=== PATIENT | male | born 1960 | race Two or more races ===

== ENCOUNTER 2017-08-31 08:09 | Inpatient (IN) | payer BC, MEDICARE ==
[~2017-08-31 08:09] MED LIST: Famotidine 20 MG/2 ML SDV IVPUSH SCH; Ropivacaine 49.25 ML, Ketorolac 30 MG, EPINEPHrine 0.5 MG, cloNIDine 80 MCG in Sodium C... INJECT SCH; Scopolamine 1.5 MG Transdermal Patch TRDERM SCH; Tranexamic Acid 4,000 MG in Sodium Chloride 0.9% 100 ML IV SCH; ceFAZolin 2 GM in Premix Bag 1 BAG IV SCH; oxyCODONE ER 20 MG TAB.ER PO SCH
[2017-08-31] MEDS: Lactated Ringers 1,000 ML IV SCH ×2 (08:47→21:18)
[2017-08-31] MEDS: Ketorolac 30 MG/ML SDV IVPUSH SCH ×4 (08:49→23:45)
[2017-08-31] MEDS: Acetaminophen 1,000 MG in Premix Bag 1 BAG IV SCH ×4 (08:55→21:19)
[2017-08-31] MEDS ORDERED: Midazolam 1 MG/ML 2 ML SDV ONE (09:37)
[2017-08-31] MEDS ORDERED: fentaNYL 100 MCG/2 ML SDV ONE (09:37)
[2017-08-31] MEDS ORDERED: Lidocaine 2% 5 ML SDV ONE (09:37)
[2017-08-31] MEDS ORDERED: Propofol 200 MG/20 ML SDV ONE ×2 (09:37→11:02)
[2017-08-31] MEDS ORDERED: ceFAZolin/Dextrose,Iso-Osmotic 2 GM/50 ML Duplex Bag IV ONE (09:38)
[2017-08-31] MEDS ORDERED: Ketorolac 30 MG/ML SDV ONE (09:38)
[2017-08-31] MEDS ORDERED: Ondansetron 4 MG/2 ML SDV ONE ×2 (09:38→13:35)
--- NOTE | 2017-08-31 09:54 | PCM.PREANE ---
Preanesthetic Assessment - Procedure Proposed Procedure: Right TKR - Anesthesia/Transfusion/Family Hx Anesthesia History: Prior Anesthesia Without Reaction Other Type of Anesthesia Reaction Comment: reports hx: 'some motion sickness' Family History of Anesthesia Reaction: No Intubation History: Unknown - Review of Systems General: No Symptoms Pulmonary: No Symptoms, Other (Light smoker) Cardiovascular: No Symptoms Gastrointestinal: No Symptoms Neurological: Gait Disturbance (arthritis and polyarthralgias) Other: Reports: None - Physical Assessment NPO Status Date: 08/30/17 NPO Status Time: 23:00 O2 Sat by Pulse Oximetry: 99 Respiratory Rate: 16 Vital Signs: Last Vital Signs Temp 97.5 F 08/31/17 08:46 Pulse 68 08/31/17 08:46 Resp 16 08/31/17 08:46 BP 126/82 08/31/17 08:46 Pulse Ox 99 08/31/17 08:46 Height: 5 ft 7.5 in Weight: 210 lb ASA Class: 2 Mental Status: Alert & Oriented x3 Airway Class: Mallampati = 1 Dentition: Reports: Normal Dentition, [place](s) Thyro-Mental Finger Breadths: 3 Mouth Opening Finger Breadths: 3 ROM/Head Extension: Full Lungs: Clear to Auscultation, Normal Respiratory Effort Cardiovascular: Regular Rate, Regular Rhythm, No Murmurs - Allergies Allergies/Adverse Reactions: Allergies Allergy/AdvReac Type Severity Reaction Status Date / Time No Known Allergies Allergy Verified 08/31/17 09:43 - Blood Blood Available: No Product(s) Available: None - Anesthesia Plan Pre-Op Medication Ordered: Other (per surgeon protocol) - Acknowledgements Anesthesia Type Planned: Spinal (with IV sedation) Pt an Appropriate Candidate for the Planned Anesthesia: Yes Alternatives and Risks of Anesthesia Discussed w Pt/Guardian: Yes Pt/Guardian Understands and Agrees with Anesthesia Plan: Yes PreAnesthesia Questionnaire Gastrointestinal History: Reports: None Musculoskeletal History: Reports: Arthritis, Fracture Other Musculoskeletal History: DJD, hx fx rt ankle and rt forearm Endocrine/Metabolic History: Reports: Obesity/BMI 30+ - Past Surgical History Head Surgeries/Procedures: Reports: None GI Surgical History: Reports: Hernia, Inguinal Musculoskeletal Surgical History: Reports: Knee Replacement, Shoulder Surgery Other Musculoskeletal Surgeries/Procedures:: hx left knee arthroplasty, dorinda shoulder surgery surgery and exc of nodule from elbow - SUBSTANCE USE Smoking Status *Q: Light Tobacco Smoker Tobacco Use Within Last Twelve Months: Cigarettes Days Per Week of Alcohol Use: 1 Number of Drinks Per Day: 6 Total Drinks Per Week: 6 Recreational Drug Use History: Yes - HOME MEDS Home Medications: Home Meds Multivitamin [Multi-Vitamin Daily] 1 each PO DAILY 12/16/13 [History] traMADol [Ultram] 1 - 2 tab PO Q6H PRN 08/26/17 [History] - CURRENT (IN HOUSE) MEDS Current Meds: Current Medications Famotidine (Pepcid) 40 mg IVPUSH ONARRIVE [facility] Last Admin: 08/31/17 08:48 Dose: 40 mg Acetaminophen 1,000 mg/ Premix 100 mls @ 400 mls/hr IV ONARRIVE [facility] Last Admin: 08/31/17 08:55 Dose: 400 mls/hr Cefazolin Sodium/Dextrose 2 gm (/ Premix) 50 mls @ 100 mls/hr IV ONCALL [facility] Ropivacaine 49.25 ml/Ketorolac Tromethamine 30 mg/Epinephrine HCl 0.5 mg/ Clonidine HCl 80 mcg/ Sodium Chloride 100 mls @ 50 mls/sec INJECT ASDIRECTED [facility] Lactated Ringer's (Ringers, Lactated) 1,000 mls @ 100 mls/hr IV ASDIRECTED [facility] Last Admin: 08/31/17 08:47 Dose: 100 mls/hr Tranexamic Acid 4,000 mg/ (Sodium Chloride) 140 mls @ 600 mls/hr IV ASDIRECTED [facility] Ketorolac Tromethamine (Toradol) 30 mg IVPUSH ONARRIVE [facility] Last Admin: 08/31/17 08:49 Dose: 30 mg Oxycodone HCl (Oxycontin) 20 mg PO ONARRIVE [facility] Last Admin: 08/31/17 08:47 Dose: 20 mg Scopolamine (Transderm-Scop) 1.5 mg TRDERM ONARRIVE [facility] Last Admin: 08/31/17 08:48 Dose: 1.5 mg Discontinued Medications Cefazolin Sodium/Dextrose (Ancef) Confirm Administered Dose 2 gm IV .STK-MED ONE Stop: 08/31/17 09:39 Fentanyl (Sublimaze) Confirm Administered Dose 100 mcg .ROUTE .STK-MED ONE Stop: 08/31/17 09:38 Ketorolac Tromethamine (Toradol) Confirm Administered Dose 30 mg .ROUTE .STK- MED ONE Stop: 08/31/17 09:39 Lidocaine (Xylocaine-Mpf 2%) Confirm Administered Dose 10 ml .ROUTE .STK-MED ONE Stop: 08/31/17 09:38 Midazolam HCl (Versed 1 Mg/Ml) Confirm Administered Dose 2 mg .ROUTE .STK-MED ONE Stop: 08/31/17 09:38 Ondansetron HCl (Zofran) Confirm Administered Dose 4 mg .ROUTE .STK-MED ONE Stop: 08/31/17 09:39 Propofol (Diprivan 20 Ml) Confirm Administered Dose 400 mg .ROUTE .STK-MED ONE Stop: 08/31/17 09:38 Tranexamic Acid (Cyklokapron) Confirm Administered Dose 4,000 mg .ROUTE .STK- MED ONE Stop: 08/31/17 08:37
[2017-08-31] MEDS ORDERED: diphenhydrAMINE 25 MG Cap PO PRN (10:22)
[2017-08-31] MEDS ORDERED: Aluminum Hydroxide/Magnesium Hydroxide/Simethicone Susp 30 ML Cup PO PRN (10:23)
[2017-08-31] MEDS ORDERED: Bisacodyl 10 MG Supp RECTAL PRN (10:23)
[2017-08-31] MEDS ORDERED: Morphine PF 30 MG/30 ML PCA Vial IV SCH (10:30)
[2017-08-31] MEDS ORDERED: HYDROmorphone 2 MG/ML Syringe IVPUSH ONE (11:22)
[2017-08-31] MEDS ORDERED: fentaNYL 100 MCG/2 ML SDV IVPUSH PRN (11:22)
--- NOTE | 2017-08-31 12:28 | PCM.OPNOTE ---
- General Post-Op/Procedure Note Date of Surgery/Procedure: 08/31/17 Operative Procedure(s): R TKA Post-Op Diagnosis: DJD R knee Anesthesia Technique: Moderate Sedation, Spinal Primary Surgeon: Concepcion Pascal Nanny Babysitter: Suzanne Devi in mLs: 50 Condition: Good Free Text/Narrative:: tt=41 min #[id number] Intake & Output 08/30/17 08/31/17 08/31/17 22:59 06:59 14:59 Output Total 250 Balance -250
--- NOTE | 2017-08-31 12:52 | OR ---
SURGEON: Concepcion Pascal MD DATE OF PROCEDURE: 08/31/2017 PREOPERATIVE DIAGNOSIS: Degenerative joint disease of right knee, tricompartmental. POSTOPERATIVE DIAGNOSIS: Degenerative joint disease of right knee, tricompartmental. PROCEDURE: Right total knee arthroplasty using patient specific instrumentation. SHOE LASTER: Suzanne Devi PA-C. ANESTHESIA: Spinal with sedation. ESTIMATED BLOOD LOSS: 50 mL. TOURNIQUET TIME: 41 minutes. COMPLICATIONS: None. DVT PROPHYLAXIS: PAS boot and DANIEL hose to the nonoperative leg. IMPLANTS USED: Jabari Persona femoral component size 8 standard (LPS), tibial component size F, 35 mm all-polyethylene patella, and 10 mm all-polyethylene insert. INTRAOPERATIVE FINDINGS: Showed severe tricompartmental degenerative changes. Complete eburnation of the bone was noted along the medial femoral condyle as well as the medial tibial plateau. Excess osteophyte formation along with loose bodies was noted throughout the knee. No significant synovitis was noted. BRIEF HISTORY: Luis A is a 57-year-old male, who has had complaint of progressive right knee pain. He has previously undergone a left total knee arthroplasty and has done well. Due to his lack of response to conservative treatment, I did recommend surgical intervention. The risks and goals of procedure were discussed with the patient and were documented preoperatively. He agreed to proceed. DESCRIPTION OF PROCEDURE: The patient was properly identified and brought to the operating room. The patient was then transferred from the operating room cart and placed on the operating table in a supine position. Anesthesia was administered by the anesthesia staff. After adequate anesthesia was obtained, a well-padded tourniquet was applied to the surgical lower extremity. Kaye catheter was placed. The lower extremity was then prepped in standard fashion using ChloraPrep solution. It was then sterilely draped. A time-out was performed to ensure correct site and procedure. Preoperative antibiotics were given along with one gram of tranexamic acid IV. The surgical site had been marked preoperatively. An Esmarch was used to exsanguinate the right lower extremity and the tourniquet was inflated. An incision was made over the anterior aspect of the knee. The subcutaneous tissues were dissected down to the level of the fascia. A medial parapatellar approach to the knee was made. A portion of the infrapatellar fat pad was then excised. The distal femur was then exposed. The femoral patient-specific cutting guide was then placed. Pins were also placed. The distal femoral cutting block was placed and the distal femoral cut was made. Instrumentation was then removed. Both Whitesides' line and the epicondylar axis were then marked with electrocautery. The 4-in-1 cutting block was placed. This was placed in a slightly externally rotated position, which corresponded well with the previously drawn lines. The cutting guide was then pinned into position. An Aiden wing guide was used to check the depth of resection of our anterior condylar cut and it was felt that no notching would occur. The anterior condylar cut was then made followed by the posterior condylar cut. Both the posterior chamfer and anterior chamfer cuts were then made. The cutting block was then removed along with the excess bony remnants. We then turned our attention to the tibia. The anterior cruciate ligament and posterior cruciate ligament were released and a posterior cruciate ligament retractor was placed to allow the tibia to be pulled anteriorly. The tibial patient-specific guide was then placed on the proximal tibia. This fit anatomically. The pins were then placed. The proximal tibia cutting guide was then placed and screwed into position. The proximal tibial resection was then made with care being taken to protect the patellar tendon. The bony resection was then removed. The remainder of the medial and lateral meniscus were then excised. Care was taken to protect the popliteus tendon. The tibia was then sized to the appropriate size. The distal femur was then elevated. The posterior capsule was stripped off the distal femur both medially and laterally. The posterior capsule along with the medial and lateral gutters were then injected with a standard mixture consisting of clonidine, epinephrine, Toradol, and Ropivacaine, unless any allergies were found preoperatively. The femoral component was then placed onto the distal femur in a slightly lateral position. This fit the femur well. A box cut was then made without difficulty. This was then removed. The tibial trial along with the polyethylene liner was then placed. The knee came easily into full extension and was stable to varus and valgus stressing both in full extension and flexion. Any additional releases were performed at this time. We then returned our attention to the patella. The patella was everted and towel clamps were used to hold the patella in position. It was resected to a 15 millimeter thickness. It was then sized to the appropriate size. It was prepared in the usual fashion after placing the predetermined size clamps. This was placed in a slightly superior and medial position. The clamp was then removed. The patellar trial button was placed. The knee was taken through a range of motion using the no-touch technique. The patella tracked centrally. A drop suri was then placed to check alignment. All instruments were then removed from the knee. The tibial sizer was then placed on the tibia. The tibia was prepared in the usual fashion using the reamer and broach. This was then removed. All bony surfaces were copiously irrigated with Pulsavac solution. They were then suctioned dry. Cement was prepared on the back table in the usual manner. Once it was prepared, the bone ends were again suctioned dry. The tibia was cemented into place first. This was malleted into position. Excess cement was then cleared. The femur was then placed in a similar manner. We placed the polyethylene trial into place and the knee was brought into full extension. An axial load was placed while keeping the knee in full extension. The patella button was also cemented into position and the clamp was used to hold this in place as the cement was allowed to cure. The wound was again copiously irrigated with saline solution using a Pulsavac parish worker. Following this, 1 g of tranexamic acid was applied to the wound topically. After we had adequate curing of the cement, the knee was again taken through a range of motion. The size of the polyethylene was then determined. The polyethylene trial was then removed. The tibial tray was suctioned to make sure there was no remaining soft tissue or cement. Excess cement was cleared from around the edges of the prosthesis as well. The tourniquet was then deflated. We were able to observe for any excess bleeding and none was noted. Electrocautery was used to maintain hemostasis. An additional gram of tranexamic acid was given IV. The retractors were again placed and the predetermined polyethylene was then placed. This was locked into position without difficulty. The knee was again taken through a range of motion with no change from the prior exam. The fascial layer was closed with #1 Vicryl. The subcutaneous tissues were closed with 2-0 Vicryl. The skin was closed with tracie. Xeroform gauze was placed over the wound and a bulky dressing was applied. The patient was then awakened from anesthesia and transferred back to the operating room cart. They were brought to the recovery room in stable condition. All needle and sponge counts were correct. TASIA / DONAVAN /[id number]
--- NOTE | 2017-08-31 13:21 | PCM.POSTAN ---
POST ANESTHESIA ASSESSMENT - MENTAL STATUS Mental Status: Alert (alert and ready for transfer to the floor to Phase II), Oriented - RESPIRATORY Respiratory Status: Respiratory Rate WNL, Airway Patent, O2 Saturation Stable - CARDIOVASCULAR CV Status: Pulse Rate WNL, Blood Pressure Stable - GASTROINTESTINAL GI Status: No Symptoms - POST OP HYDRATION Hydration Status: Adequate & Stable
[2017-08-31] MEDS: Ondansetron 4 MG/2 ML SDV IV PRN (13:42)
[2017-08-31] MEDS: oxyCODONE 5 MG Tab PO PRN ×2 (15:02→19:40)
--- NOTE | 2017-08-31 15:45 | CR ---
EXAMINATION: Right knee HISTORY: Arthroplasty COMPARISON: 07/20/2017 TECHNIQUE: AP and lateral views FINDINGS/IMPRESSION: Right total knee hardware is demonstrated in good position and alignment. Postop erative soft tissue changes noted.
[2017-08-31] MEDS: ceFAZolin 2 GM in Premix Bag 1 BAG IV SCH (18:45)
[2017-08-31] MEDS: Docusate Sodium 100 MG Cap PO SCH (21:19)
[2017-08-31] MEDS: oxyCODONE ER 20 MG TAB.ER PO SCH (21:19)
[2017-09-01] MEDS: ceFAZolin 2 GM in Premix Bag 1 BAG IV SCH (01:55)
[2017-09-01] MEDS: oxyCODONE 5 MG Tab PO PRN (02:28)
[2017-09-01] MEDS: Acetaminophen 1,000 MG in Premix Bag 1 BAG IV SCH (02:28)
[2017-09-01] MEDS ORDERED: Sodium Chloride 0.9% 2.5 ML Syringe FLUSH PRN (09:53)
[2017-09-01] MEDS ORDERED: Sodium Chloride 0.9% 10 ML Syringe FLUSH PRN (09:53)
[2017-09-01] MEDS: Morphine 4 MG/ML Syringe IVPUSH PRN ×2 (09:57→15:32)
[2017-09-01] MEDS: oxyCODONE ER 20 MG TAB.ER PO SCH ×2 (10:54→20:26)
[2017-09-01] MEDS: Multivitamin Tab PO SCH (10:54)
[2017-09-01] MEDS: Famotidine 20 MG Tab PO SCH (10:54)
[2017-09-01] MEDS: Docusate Sodium 100 MG Cap PO SCH ×2 (10:54→20:26)
[2017-09-01] MEDS: Celecoxib 100 MG Cap PO SCH ×2 (10:54→20:26)
[2017-09-01] MEDS: Aspirin 325 MG Tab PO SCH ×2 (10:54→20:26)
--- NOTE | 2017-09-01 11:31 | PCM48HPAN ---
Post Anesthesia Note - EVALUATION WITHIN 48HRS OF ANESTHETIC Vital Signs in Normal Range: Yes Patient Participated in Evaluation: Yes Respiratory Function Stable: Yes Airway Patent: Yes Cardiovascular Function Stable: Yes Hydration Status Stable: Yes Pain Control Satisfactory: No (pt had just gotten up. c/o pain. treated with po meds) Nausea and Vomiting Control Satisfactory: Yes Mental Status Recovered: Yes Resp Rate: 20
[2017-09-01] MEDS: Acetaminophen/oxyCODONE 325-5 MG Tab PO PRN ×2 (13:17→17:31)
[2017-09-01] MEDS: Ondansetron 4 MG/2 ML SDV IV PRN (15:32)
--- NOTE | 2017-09-01 17:07 | PCM.SURGPN ---
- General Info Date of Service: 09/01/17 POD#: 1 Functional Status: Reports: Pain Controlled - Review of Systems General: Reports: No Symptoms Pulmonary: Reports: No Symptoms Cardiovascular: Reports: No Symptoms Gastrointestinal: Reports: Nausea. Denies: Vomiting Systems Review Comment:: Patient seen and examined at 1300. Patient did have some nausea earlier today which appears to be related to the morphine. He has not had any nausea recently. He is attempting to control his pain with oral pain medication. He is progressing slowly with physical therapy. He has no other concerns today. - Patient Data Vitals - Most Recent: Last Vital Signs Temp 96.3 F 09/01/17 15:50 Pulse 68 09/01/17 15:50 Resp 20 09/01/17 15:50 BP 149/87 H 09/01/17 15:50 Pulse Ox 98 09/01/17 15:50 Weight - Most Recent: 95.254 kg I&O - Last 24 Hours: Intake & Output 09/01/17 09/01/17 09/01/17 06:59 14:59 22:59 Intake Total 150 Balance 150 Lab Results Last 24 Hrs: Laboratory Results - last 24 hr 09/01/17 Range/Units 05:50 Hgb 11.5 L (13.0-17.0) g/dL Hct 34.4 L (38.0-50.0) % Med Orders - Current: Current Medications Al Hydroxide/Mg Hydroxide (Mag-Al Plus) 30 ml PO Q4H PRN PRN Reason: indigestion Aspirin (Aspirin) 325 mg PO BID [facility] Last Admin: 09/01/17 10:54 Dose: Not Given Bisacodyl (Dulcolax) 10 mg RECTAL DAILY PRN PRN Reason: Constipation Celecoxib (Celebrex) 200 mg PO BID [facility] Last Admin: 09/01/17 10:54 Dose: Not Given Diphenhydramine HCl (Benadryl) 25 - 50 mg PO Q6H PRN PRN Reason: Itching Docusate Sodium (Colace) 100 mg PO BID [facility] Last Admin: 09/01/17 10:54 Dose: Not Given Famotidine (Pepcid) 40 mg IVPUSH ONARRIVE [facility] Last Admin: 08/31/17 08:48 Dose: 40 mg Famotidine (Pepcid) 40 mg PO DAILY [facility] Last Admin: 09/01/17 10:54 Dose: Not Given Acetaminophen 1,000 mg/ Premix 100 mls @ 400 mls/hr IV ONARRIVE [facility] Last Admin: 08/31/17 15:03 Dose: 400 mls/hr Cefazolin Sodium/Dextrose 2 gm (/ Premix) 50 mls @ 100 mls/hr IV ONCALL [facility] Last Admin: 08/31/17 17:49 Dose: 100 mls/hr Ropivacaine 49.25 ml/Ketorolac Tromethamine 30 mg/Epinephrine HCl 0.5 mg/ Clonidine HCl 80 mcg/ Sodium Chloride 100 mls @ 50 mls/sec INJECT ASDIRECTED [facility] Lactated Ringer's (Ringers, Lactated) 1,000 mls @ 100 mls/hr IV ASDIRECTED [facility] Last Admin: 08/31/17 21:18 Dose: 100 mls/hr Tranexamic Acid 4,000 mg/ (Sodium Chloride) 140 mls @ 600 mls/hr IV ASDIRECTED [facility] Ketorolac Tromethamine (Toradol) 30 mg IVPUSH ONARRIVE [facility] Last Admin: 08/31/17 17:48 Dose: 30 mg Morphine Sulfate (Morphine) 1 - 3 mg IVPUSH Q3H PRN PRN Reason: Pain Last Admin: 09/01/17 15:32 Dose: 2 mg Multivitamins/Minerals/Vitamin C (Tab-A-Fan) 1 tab PO DAILY [facility] Last Admin: 09/01/17 10:54 Dose: Not Given Ondansetron HCl (Zofran) 4 mg IV Q6HR PRN PRN Reason: NAUSEA/VOMITING Last Admin: 09/01/17 15:32 Dose: 4 mg Oxycodone HCl (Oxycontin) 20 mg PO ONARRIVE [facility] Last Admin: 08/31/17 08:47 Dose: 20 mg Oxycodone HCl (Oxycontin) 20 mg PO Q12HR [facility] Last Admin: 09/01/17 10:54 Dose: Not Given Oxycodone/Acetaminophen (Percocet 325-5 Mg) 1 - 2 tab PO Q4H PRN PRN Reason: Pain Last Admin: 09/01/17 13:17 Dose: 2 tab Scopolamine (Transderm-Scop) 1.5 mg TRDERM ONARRIVE [facility] Last Admin: 08/31/17 08:48 Dose: 1.5 mg Sodium Chloride (Saline Flush) 10 ml FLUSH ASDIRECTED PRN PRN Reason: Keep Vein Open Sodium Chloride (Saline Flush) 2.5 ml FLUSH ASDIRECTED PRN PRN Reason: Keep Vein Open Discontinued Medications Cefazolin Sodium/Dextrose (Ancef) Confirm Administered Dose 2 gm IV .STK-MED ONE Stop: 08/31/17 09:39 Fentanyl (Sublimaze) Confirm Administered Dose 100 mcg .ROUTE .STK-MED ONE Stop: 08/31/17 09:38 Fentanyl (Sublimaze) 50 mcg IVPUSH Q5M PRN PRN Reason: Pain (severe 7-10) Stop: 09/01/17 11:22 Hydromorphone HCl (Dilaudid) 0 mg IVPUSH ONETIME ONE Stop: 08/31/17 11:23 Last Admin: 08/31/17 13:44 Dose: Not Given Acetaminophen 1,000 mg/ Premix 100 mls @ 400 mls/hr IV Q6H [facility] Stop: 09/01/17 03:14 Last Admin: 09/01/17 02:28 Dose: 400 mls/hr Cefazolin Sodium/Dextrose 2 gm (/ Premix) 50 mls @ 100 mls/hr IV Q8H [facility] Stop: 09/01/17 02:59 Last Admin: 09/01/17 01:55 Dose: 100 mls/hr Ketorolac Tromethamine (Toradol) Confirm Administered Dose 30 mg .ROUTE .STK- MED ONE Stop: 08/31/17 09:39 Ketorolac Tromethamine (Toradol) 30 mg IVPUSH Q6H [facility] Stop: 09/01/17 04:00 Last Admin: 08/31/17 23:45 Dose: 30 mg Lidocaine (Xylocaine-Mpf 2%) Confirm Administered Dose 10 ml .ROUTE .STK-MED ONE Stop: 08/31/17 09:38 Midazolam HCl (Versed 1 Mg/Ml) Confirm Administered Dose 2 mg .ROUTE .STK-MED ONE Stop: 08/31/17 09:38 Morphine Sulfate (Morphine Land Planner 30 Mg In 30 Ml) 30 mg IV ASDIRECTED [facility]; Protocol Stop: 09/01/17 08:00 Last Admin: 08/31/17 13:11 Dose: 30 mg Ondansetron HCl (Zofran) Confirm Administered Dose 4 mg .ROUTE .STK-MED ONE Stop: 08/31/17 09:39 Ondansetron HCl (Zofran) Confirm Administered Dose 4 mg .ROUTE .STK-MED ONE Stop: 08/31/17 13:36 Last Admin: 09/01/17 10:55 Dose: Not Given Oxycodone HCl (Oxycodone) 5 - 10 mg PO Q4H PRN PRN Reason: Pain Stop: 09/01/17 08:00 Last Admin: 09/01/17 02:28 Dose: 10 mg Propofol (Diprivan 20 Ml) Confirm Administered Dose 400 mg .ROUTE .STK-MED ONE Stop: 08/31/17 09:38 Propofol (Diprivan 20 Ml) Confirm Administered Dose 400 mg .ROUTE .STK-MED ONE Stop: 08/31/17 11:03 Tranexamic Acid (Cyklokapron) Confirm Administered Dose 4,000 mg .ROUTE .STK- MED ONE Stop: 08/31/17 08:37 - Exam General: Alert, Oriented Neck: Supple Physical Findings Comment:: Exam of the right knee shows the dressing to be dry and intact. He has no calf tenderness.AT/EHL/gastroc 5/5. Sensation grossly intact. DP/PT pulses 2+. - Problem List Review Problem List Initiated/Reviewed/Updated: Yes - My Orders Last 24 Hours: Active Orders 24 hr Category Date Time Status Remove Kaye Catheter [Urinary Catheter Removal] [RC] Care 09/01/17 09:52 Active Per Unit Routine HEMOGLOBIN/HEMATOCRIT,HH [HEME] DAILY Lab 09/02/17 06:00 Ordered Acetaminophen/oxyCODONE [Percocet 325-5 MG] Med 09/01/17 08:00 Active 1 - 2 tab PO Q4H PRN Aspirin Med 09/01/17 09:00 Active 325 mg PO BID Celecoxib [CeleBREX] Med 09/01/17 09:00 Active 200 mg PO BID Docusate Sodium [Colace] Med 08/31/17 21:00 Active 100 mg PO BID Famotidine [Pepcid] Med 09/01/17 09:00 Active 40 mg PO DAILY Morphine Med 09/01/17 08:00 Active 1 - 3 mg IVPUSH Q3H PRN Multivitamins [Tab-A-Fan] Med 09/01/17 09:00 Active 1 tab PO DAILY Sodium Chloride 0.9% [Saline Flush] Med 09/01/17 09:53 Active 10 ml FLUSH ASDIRECTED PRN Sodium Chloride 0.9% [Saline Flush] Med 09/01/17 09:53 Active 2.5 ml FLUSH ASDIRECTED PRN oxyCODONE ER [OxyCONTIN] Med 08/31/17 21:00 Active 20 mg PO Q12HR Convert IV to Saline Lock [OM.PC] Routine Oth 09/01/17 09:53 Ordered Medication Orders Al Hydroxide/Mg Hydroxide (Mag-Al Plus) 30 ml PO Q4H PRN PRN Reason: indigestion Aspirin (Aspirin) 325 mg PO BID [facility] Last Admin: 09/01/17 10:54 Dose: Bisacodyl (Dulcolax) 10 mg RECTAL DAILY PRN PRN Reason: Constipation Celecoxib (Celebrex) 200 mg PO BID [facility] Last Admin: 09/01/17 10:54 Dose: Diphenhydramine HCl (Benadryl) 25 - 50 mg PO Q6H PRN PRN Reason: Itching Docusate Sodium (Colace) 100 mg PO BID [facility] Last Admin: 09/01/17 10:54 Dose: Admin: 08/31/17 21:19 Dose: 100 mg Famotidine (Pepcid) 40 mg IVPUSH ONARRIVE [facility] Last Admin: 08/31/17 08:48 Dose: 40 mg Famotidine (Pepcid) 40 mg PO DAILY [facility] Last Admin: 09/01/17 10:54 Dose: Acetaminophen 1,000 mg/ Premix 100 mls @ 400 mls/hr IV ONARRIVE [facility] Last Admin: 08/31/17 15:03 Dose: 400 mls/hr Infusion: 08/31/17 09:10 Dose: 400 mls/hr Admin: 08/31/17 08:55 Dose: 400 mls/hr Cefazolin Sodium/Dextrose 2 gm (/ Premix) 50 mls @ 100 mls/hr IV ONCALL [facility] Last Admin: 08/31/17 17:49 Dose: 100 mls/hr Ropivacaine 49.25 ml/Ketorolac Tromethamine 30 mg/Epinephrine HCl 0.5 mg/ Clonidine HCl 80 mcg/ Sodium Chloride 100 mls @ 50 mls/sec INJECT ASDIRECTED [facility] Lactated Ringer's (Ringers, Lactated) 1,000 mls @ 100 mls/hr IV ASDIRECTED [facility] Last Admin: 08/31/17 21:18 Dose: 100 mls/hr Infusion: 08/31/17 18:47 Dose: 100 mls/hr Admin: 08/31/17 08:47 Dose: 100 mls/hr Tranexamic Acid 4,000 mg/ (Sodium Chloride) 140 mls @ 600 mls/hr IV ASDIRECTED [facility] Ketorolac Tromethamine (Toradol) 30 mg IVPUSH ONARRIVE [facility] Last Admin: 08/31/17 17:48 Dose: 30 mg Admin: 08/31/17 08:49 Dose: 30 mg Morphine Sulfate (Morphine) 1 - 3 mg IVPUSH Q3H PRN PRN Reason: Pain Last Admin: 09/01/17 15:32 Dose: 2 mg Admin: 09/01/17 09:57 Dose: 2 mg Multivitamins/Minerals/Vitamin C (Tab-A-Fan) 1 tab PO DAILY [facility] Last Admin: 09/01/17 10:54 Dose: Ondansetron HCl (Zofran) 4 mg IV Q6HR PRN PRN Reason: NAUSEA/VOMITING Last Admin: 09/01/17 15:32 Dose: 4 mg Admin: 08/31/17 13:42 Dose: 4 mg Oxycodone HCl (Oxycontin) 20 mg PO ONARRIVE [facility] Last Admin: 08/31/17 08:47 Dose: 20 mg Oxycodone HCl (Oxycontin) 20 mg PO Q12HR [facility] Last Admin: 09/01/17 10:54 Dose: Admin: 08/31/17 21:19 Dose: 20 mg Oxycodone/Acetaminophen (Percocet 325-5 Mg) 1 - 2 tab PO Q4H PRN PRN Reason: Pain Last Admin: 09/01/17 13:17 Dose: 2 tab Scopolamine (Transderm-Scop) 1.5 mg TRDERM ONARRIVE [facility] Last Admin: 08/31/17 08:48 Dose: 1.5 mg Sodium Chloride (Saline Flush) 10 ml FLUSH ASDIRECTED PRN PRN Reason: Keep Vein Open Sodium Chloride (Saline Flush) 2.5 ml FLUSH ASDIRECTED PRN PRN Reason: Keep Vein Open - Plan Plan (Free Text/Narrative):: 1. hgb stable 2. continue current pain management 3. increase mobility--would benefit from additional PT 4. avoid morphine--encourage po meds 5. plan d/c home tomorrow if feeling better and mobility increased
[2017-09-02] MEDS: Acetaminophen/oxyCODONE 325-5 MG Tab PO PRN ×2 (03:59→09:10)
[2017-09-02] MEDS: Celecoxib 100 MG Cap PO SCH (08:04)
[2017-09-02] MEDS: Docusate Sodium 100 MG Cap PO SCH (08:05)
[2017-09-02] MEDS: Famotidine 20 MG Tab PO SCH (08:05)
[2017-09-02] MEDS: oxyCODONE ER 20 MG TAB.ER PO SCH (08:05)
[2017-09-02] MEDS: Multivitamin Tab PO SCH (08:05)
[2017-09-02] MEDS: Aspirin 325 MG Tab PO SCH (08:05)
--- NOTE | 2017-09-02 10:13 | PCM.SURGPN ---
- General Info Date of Service: 09/02/17 Date of Surgery/Procedure: 08/31/17 POD#: 2 Functional Status: Reports: Pain Controlled, Tolerating Diet, Ambulating, Urinating - Review of Systems General: Reports: No Symptoms Musculoskeletal: Reports: Leg Pain Systems Review Comment:: pt resting comfortably in bed some nausea, but feels pain is controlled would rather d/ch to home with Zofran ODT vs stop oxycontin ambulating well no concerns today would like d/ch to home after therapy - Patient Data Vitals - Most Recent: Last Vital Signs Temp 97.8 F 09/02/17 08:00 Pulse 89 09/02/17 08:00 Resp 18 09/02/17 08:00 BP 132/82 09/02/17 08:00 Pulse Ox 99 09/02/17 08:00 Weight - Most Recent: 95.254 kg I&O - Last 24 Hours: Intake & Output 09/01/17 09/02/17 09/02/17 22:59 06:59 14:59 Intake Total 600 500 Output Total 0 Balance 600 500 Lab Results Last 24 Hrs: Laboratory Results - last 24 hr 09/01/17 09/02/17 Range/Units 05:50 06:02 Hgb 11.5 L 12.1 L (13.0-17.0) g/dL Hct 34.4 L 35.3 L (38.0-50.0) % Med Orders - Current: Current Medications Al Hydroxide/Mg Hydroxide (Mag-Al Plus) 30 ml PO Q4H PRN PRN Reason: indigestion Aspirin (Aspirin) 325 mg PO BID [facility] Last Admin: 09/02/17 08:05 Dose: 325 mg Bisacodyl (Dulcolax) 10 mg RECTAL DAILY PRN PRN Reason: Constipation Celecoxib (Celebrex) 200 mg PO BID [facility] Last Admin: 09/02/17 08:04 Dose: 200 mg Diphenhydramine HCl (Benadryl) 25 - 50 mg PO Q6H PRN PRN Reason: Itching Docusate Sodium (Colace) 100 mg PO BID [facility] Last Admin: 09/02/17 08:05 Dose: 100 mg Famotidine (Pepcid) 40 mg IVPUSH ONARRIVE [facility] Last Admin: 08/31/17 08:48 Dose: 40 mg Famotidine (Pepcid) 40 mg PO DAILY [facility] Last Admin: 09/02/17 08:05 Dose: 40 mg Acetaminophen 1,000 mg/ Premix 100 mls @ 400 mls/hr IV ONARRIVE [facility] Last Admin: 08/31/17 15:03 Dose: 400 mls/hr Cefazolin Sodium/Dextrose 2 gm (/ Premix) 50 mls @ 100 mls/hr IV ONCALL [facility] Last Admin: 08/31/17 17:49 Dose: 100 mls/hr Ropivacaine 49.25 ml/Ketorolac Tromethamine 30 mg/Epinephrine HCl 0.5 mg/ Clonidine HCl 80 mcg/ Sodium Chloride 100 mls @ 50 mls/sec INJECT ASDIRECTED [facility] Lactated Ringer's (Ringers, Lactated) 1,000 mls @ 100 mls/hr IV ASDIRECTED [facility] Last Admin: 08/31/17 21:18 Dose: 100 mls/hr Tranexamic Acid 4,000 mg/ (Sodium Chloride) 140 mls @ 600 mls/hr IV ASDIRECTED [facility] Ketorolac Tromethamine (Toradol) 30 mg IVPUSH ONARRIVE [facility] Last Admin: 08/31/17 17:48 Dose: 30 mg Morphine Sulfate (Morphine) 1 - 3 mg IVPUSH Q3H PRN PRN Reason: Pain Last Admin: 09/01/17 15:32 Dose: 2 mg Multivitamins/Minerals/Vitamin C (Tab-A-Fan) 1 tab PO DAILY [facility] Last Admin: 09/02/17 08:05 Dose: 1 tab Ondansetron HCl (Zofran) 4 mg IV Q6HR PRN PRN Reason: NAUSEA/VOMITING Last Admin: 09/01/17 15:32 Dose: 4 mg Oxycodone HCl (Oxycontin) 20 mg PO ONARRIVE [facility] Last Admin: 08/31/17 08:47 Dose: 20 mg Oxycodone HCl (Oxycontin) 20 mg PO Q12HR [facility] Last Admin: 09/02/17 08:05 Dose: 20 mg Oxycodone/Acetaminophen (Percocet 325-5 Mg) 1 - 2 tab PO Q4H PRN PRN Reason: Pain Last Admin: 09/02/17 09:10 Dose: 1 tab Scopolamine (Transderm-Scop) 1.5 mg TRDERM ONARRIVE [facility] Last Admin: 08/31/17 08:48 Dose: 1.5 mg Sodium Chloride (Saline Flush) 10 ml FLUSH ASDIRECTED PRN PRN Reason: Keep Vein Open Sodium Chloride (Saline Flush) 2.5 ml FLUSH ASDIRECTED PRN PRN Reason: Keep Vein Open Discontinued Medications Cefazolin Sodium/Dextrose (Ancef) Confirm Administered Dose 2 gm IV .STK-MED ONE Stop: 08/31/17 09:39 Fentanyl (Sublimaze) Confirm Administered Dose 100 mcg .ROUTE .STK-MED ONE Stop: 08/31/17 09:38 Fentanyl (Sublimaze) 50 mcg IVPUSH Q5M PRN PRN Reason: Pain (severe 7-10) Stop: 09/01/17 11:22 Hydromorphone HCl (Dilaudid) 0 mg IVPUSH ONETIME ONE Stop: 08/31/17 11:23 Last Admin: 08/31/17 13:44 Dose: Not Given Acetaminophen 1,000 mg/ Premix 100 mls @ 400 mls/hr IV Q6H [facility] Stop: 09/01/17 03:14 Last Admin: 09/01/17 02:28 Dose: 400 mls/hr Cefazolin Sodium/Dextrose 2 gm (/ Premix) 50 mls @ 100 mls/hr IV Q8H [facility] Stop: 09/01/17 02:59 Last Admin: 09/01/17 01:55 Dose: 100 mls/hr Ketorolac Tromethamine (Toradol) Confirm Administered Dose 30 mg .ROUTE .STK- MED ONE Stop: 08/31/17 09:39 Ketorolac Tromethamine (Toradol) 30 mg IVPUSH Q6H [facility] Stop: 09/01/17 04:00 Last Admin: 08/31/17 23:45 Dose: 30 mg Lidocaine (Xylocaine-Mpf 2%) Confirm Administered Dose 10 ml .ROUTE .STK-MED ONE Stop: 08/31/17 09:38 Midazolam HCl (Versed 1 Mg/Ml) Confirm Administered Dose 2 mg .ROUTE .STK-MED ONE Stop: 08/31/17 09:38 Morphine Sulfate (Morphine Refinery [employer] 30 Mg In 30 Ml) 30 mg IV ASDIRECTED [facility]; Protocol Stop: 09/01/17 08:00 Last Admin: 08/31/17 13:11 Dose: 30 mg Ondansetron HCl (Zofran) Confirm Administered Dose 4 mg .ROUTE .STK-MED ONE Stop: 08/31/17 09:39 Ondansetron HCl (Zofran) Confirm Administered Dose 4 mg .ROUTE .STK-MED ONE Stop: 08/31/17 13:36 Last Admin: 09/01/17 10:55 Dose: Not Given Oxycodone HCl (Oxycodone) 5 - 10 mg PO Q4H PRN PRN Reason: Pain Stop: 09/01/17 08:00 Last Admin: 09/01/17 02:28 Dose: 10 mg Propofol (Diprivan 20 Ml) Confirm Administered Dose 400 mg .ROUTE .STK-MED ONE Stop: 08/31/17 09:38 Propofol (Diprivan 20 Ml) Confirm Administered Dose 400 mg .ROUTE .STK-MED ONE Stop: 08/31/17 11:03 Tranexamic Acid (Cyklokapron) Confirm Administered Dose 4,000 mg .ROUTE .STK- MED ONE Stop: 08/31/17 08:37 - Exam Wound/Incisions: No: Drainage, Erythema General: Alert, Oriented Cardiovascular: Regular Rate, Regular Rhythm Extremities: Other (exam RLE - at/ehl/gastroc 5/5, dp 2+, sensation intact distally) Physical Findings Comment:: vss, afeb hgb 12.1 - Problem List Review Problem List Initiated/Reviewed/Updated: Yes - My Orders Last 24 Hours: Active Orders 24 hr Category Date Time Status Remove Kaye Catheter [Urinary Catheter Removal] [RC] Care 09/01/17 09:52 Active Per Unit Routine Sodium Chloride 0.9% [Saline Flush] Med 09/01/17 09:53 Active 10 ml FLUSH ASDIRECTED PRN Sodium Chloride 0.9% [Saline Flush] Med 09/01/17 09:53 Active 2.5 ml FLUSH ASDIRECTED PRN Convert IV to Saline Lock [OM.PC] Routine Oth 09/01/17 09:53 Ordered Medication Orders Al Hydroxide/Mg Hydroxide (Mag-Al Plus) 30 ml PO Q4H PRN PRN Reason: indigestion Aspirin (Aspirin) 325 mg PO BID [facility] Last Admin: 09/02/17 08:05 Dose: 325 mg Admin: 09/01/17 20:26 Dose: 325 mg Admin: 09/01/17 10:54 Dose: Bisacodyl (Dulcolax) 10 mg RECTAL DAILY PRN PRN Reason: Constipation Celecoxib (Celebrex) 200 mg PO BID [facility] Last Admin: 09/02/17 08:04 Dose: 200 mg Admin: 09/01/17 20:26 Dose: 200 mg Admin: 09/01/17 10:54 Dose: Diphenhydramine HCl (Benadryl) 25 - 50 mg PO Q6H PRN PRN Reason: Itching Docusate Sodium (Colace) 100 mg PO BID [facility] Last Admin: 09/02/17 08:05 Dose: 100 mg Admin: 09/01/17 20:26 Dose: 100 mg Admin: 09/01/17 10:54 Dose: Admin: 08/31/17 21:19 Dose: 100 mg Famotidine (Pepcid) 40 mg IVPUSH ONARRIVE [facility] Last Admin: 08/31/17 08:48 Dose: 40 mg Famotidine (Pepcid) 40 mg PO DAILY [facility] Last Admin: 09/02/17 08:05 Dose: 40 mg Admin: 09/01/17 10:54 Dose: Acetaminophen 1,000 mg/ Premix 100 mls @ 400 mls/hr IV ONARRIVE [facility] Last Admin: 08/31/17 15:03 Dose: 400 mls/hr Infusion: 08/31/17 09:10 Dose: 400 mls/hr Admin: 08/31/17 08:55 Dose: 400 mls/hr Cefazolin Sodium/Dextrose 2 gm (/ Premix) 50 mls @ 100 mls/hr IV ONCALL [facility] Last Admin: 08/31/17 17:49 Dose: 100 mls/hr Ropivacaine 49.25 ml/Ketorolac Tromethamine 30 mg/Epinephrine HCl 0.5 mg/ Clonidine HCl 80 mcg/ Sodium Chloride 100 mls @ 50 mls/sec INJECT ASDIRECTED [facility] Lactated Ringer's (Ringers, Lactated) 1,000 mls @ 100 mls/hr IV ASDIRECTED [facility] Last Admin: 08/31/17 21:18 Dose: 100 mls/hr Infusion: 08/31/17 18:47 Dose: 100 mls/hr Admin: 08/31/17 08:47 Dose: 100 mls/hr Tranexamic Acid 4,000 mg/ (Sodium Chloride) 140 mls @ 600 mls/hr IV ASDIRECTED [facility] Ketorolac Tromethamine (Toradol) 30 mg IVPUSH ONARRIVE [facility] Last Admin: 08/31/17 17:48 Dose: 30 mg Admin: 08/31/17 08:49 Dose: 30 mg Morphine Sulfate (Morphine) 1 - 3 mg IVPUSH Q3H PRN PRN Reason: Pain Last Admin: 09/01/17 15:32 Dose: 2 mg Admin: 09/01/17 09:57 Dose: 2 mg Multivitamins/Minerals/Vitamin C (Tab-A-Fan) 1 tab PO DAILY [facility] Last Admin: 09/02/17 08:05 Dose: 1 tab Admin: 09/01/17 10:54 Dose: Ondansetron HCl (Zofran) 4 mg IV Q6HR PRN PRN Reason: NAUSEA/VOMITING Last Admin: 09/01/17 15:32 Dose: 4 mg Admin: 08/31/17 13:42 Dose: 4 mg Oxycodone HCl (Oxycontin) 20 mg PO ONARRIVE [facility] Last Admin: 08/31/17 08:47 Dose: 20 mg Oxycodone HCl (Oxycontin) 20 mg PO Q12HR [facility] Last Admin: 09/02/17 08:05 Dose: 20 mg Admin: 09/01/17 20:26 Dose: 20 mg Admin: 09/01/17 10:54 Dose: Admin: 08/31/17 21:19 Dose: 20 mg Oxycodone/Acetaminophen (Percocet 325-5 Mg) 1 - 2 tab PO Q4H PRN PRN Reason: Pain Last Admin: 09/02/17 09:10 Dose: 1 tab Admin: 09/02/17 03:59 Dose: 1 tab Admin: 09/01/17 17:31 Dose: 2 tab Admin: 09/01/17 13:17 Dose: 2 tab Scopolamine (Transderm-Scop) 1.5 mg TRDERM ONARRIVE [facility] Last Admin: 08/31/17 08:48 Dose: 1.5 mg Sodium Chloride (Saline Flush) 10 ml FLUSH ASDIRECTED PRN PRN Reason: Keep Vein Open Sodium Chloride (Saline Flush) 2.5 ml FLUSH ASDIRECTED PRN PRN Reason: Keep Vein Open - Assessment Assessment (Free Text/Narrative):: POD#2 R TKA acute posthemorrhagic anemia - Plan Plan (Free Text/Narrative):: dressing changed continue pain management and PT will d/ch to home today with Corin CONTRERAS d/ch summary #[id number]
--- NOTE | 2017-09-03 10:48 | DISCH ---
DATE OF DISCHARGE: 09/02/2017 PRIMARY CARE PHYSICIAN: Saul Gallego MD ADMITTING DIAGNOSIS: Degenerative joint disease, right knee, tricompartmental. OTHER MEDICAL DIAGNOSES: 1. Polyarthralgia. 2. Osteoarthritis. DISCHARGE DIAGNOSES: 1. Polyarthralgia. 2. Osteoarthritis. 3. Acute post hemorrhagic anemia. BRIEF HISTORY: Bonifacio is a 57-year-old male, who had had a progressive complaint of right knee pain. He has tried and failed conservative treatment. He has previously undergone a left total knee arthroplasty and did well with that. At that time, surgical treatment was recommended. On August 31, 2017, the patient underwent a right total knee arthroplasty using patient-specific instrumentation done by Dr. Concepcion Pascal. This is done under spinal anesthesia with sedation. Estimated blood loss was 50 mL. Tourniquet time was 41 minutes. There were no known complications. Upon completion of the procedure, the patient was transferred to the PACU and subsequently to Med/Surg postoperative care. HOSPITAL COURSE: Postoperatively, the patient did well. He received two doses of Ancef postoperatively for a total of 24 hours of antibiotic coverage. Physical Therapy followed him through his hospital stay. Aspirin 325 mg twice daily was started on postoperative day #1 and DVT prophylaxis. His pain was controlled with a combination of oral and IV pain medications. His vital signs have been stable. He has been afebrile. His hemoglobin on the morning of September 02 was 12.1. He is ambulating well with a wheeled walker. He feels comfortable with discharge to home. DISCHARGE MEDICATIONS: 1. OxyContin 20 mg. 2. Percocet 5/325. 3. Celebrex 200 mg. 4. Colace 100 mg. 5. Aspirin 325 mg. 6. Zofran 4 mg ODT. DISCHARGE INSTRUCTIONS: 1. Follow up in clinic in 10 to 14 days from the date of procedure. This appointment has been made for the patient. 2. Outpatient physical therapy 2 to 3 times per week for 4 to 6 weeks. 3. No driving for a minimum of 4 to 6 weeks, status post right total knee arthroplasty. 4. Polar Care to the right knee as needed. 5. DANIEL hose; on in the morning, off in the evening. 6. He is to change his dressing on Wednesday, September 06, 2017. He may place a new Aquacel dressing and leave that in place until followup. 7. Okay to shower over the Aquacel dressing. For complete medication reconciliation and discharge instructions, please refer back to the patient's EHR. Should he have questions or concerns, he has been advised to return to the clinic or call. ROSALIO GO /[id number]
== END 2017-09-02 11:00 | disposition home or self-care (01) | DRG 302 ==
LOC: MW.SDS 08:09 → MW.MS 14:03
PROVIDERS: ADMIT Orthopaedic Surgery; ATTEND Orthopaedic Surgery
PROC: 0SRC0J9 Replacement of Right Knee Joint with Synthetic Substitute, Cemented, Open Approach (ICD-10-PCS; principal; 2017-08-31)
DX: M17.11 Unilateral primary osteoarthritis, right knee (principal); M25.761 Osteophyte, right knee; M23.41 Loose body in knee, right knee; M25.50 Pain in unspecified joint; Z79.899 Other long term (current) drug therapy
CPT/HCPCS: 36415; 73560-26-RT; 73560-RT; 85014; 85018; 86850; 86900; 86901; 88304; 88311; 97110-GP; 97116-GP; 97161-GP; A9270-GY; C1713; C1776; J0171; J0690; J0735; J1885; J2250; J2270; J2274; J2405; J2704; J2795; J3010; J7050; J7120